=== PATIENT | female | born 1985 | race Caucasian/White ===

== ENCOUNTER 2017-07-28 13:45 | Emergency (ER) | payer BC ==
--- NOTE | 2017-07-28 14:24 | EDM.PDOC ---
ED HPI GENERAL MEDICAL PROBLEM - General Chief Complaint: Respiratory Problem Stated Complaint: RT SIDE HURTS Time Seen by Provider: 07/28/17 14:15 Source of Information: Reports: Patient History Limitations: Reports: No Limitations - History of Present Illness INITIAL COMMENTS - FREE TEXT/NARRATIVE: HISTORY AND PHYSICAL: History of present illness: [Comes to the ER with complaints of cough, wheezing and pain to her right chest area. She's had a cough for the past 3 weeks and it has been gradually worsening. She describes it is croupy and wet. Wheezing developed over the past couple of days. She experiences pain in her right chest when she is coughing or taking a deep breath. This began last night and has continued into today prompting her ER visit. She has not taken any medications for her symptoms. She has checked her temperature but has had episodes of feeling warm alternating with chills. Appetite is normal. No abdominal pain nausea or vomiting. She feels some mild shortness of breath which is worse with coughing. No sore throat or runny nose. Cough is productive for yellow to green colored sputum. She smokes one pack of cigarettes per day. No history of bleeding or clotting disorder. No history of DVT. No recent travel. 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 Review of systems: As per history of present illness and below otherwise all systems reviewed and negative. Past medical history: As per history of present illness and as reviewed below otherwise noncontributory. Surgical history: As per history of present illness and as reviewed below otherwise noncontributory. Social history: No reported history of drug or alcohol abuse. Family history: As per history of present illness and as reviewed below otherwise noncontributory. Physical exam: HEENT: Atraumatic, normocephalic. oral mucous membranes are pink and mildly dry. Neck supple, no lymphadenopathy. Lungs:Crackles and wheezing appreciated throughout all lung godinez anteriorly and posteriorly. Is not in any acute distress. No increased pain to chest wall with palpation of her chest. Heart: S1S2, regular rate and rhythm. Abdomen: Soft, nondistended, nontender. Pelvis: Stable nontender. Genitourinary: Deferred. Rectal: Deferred. Extremities: Atraumatic, negative for cords or calf pain. cyanosis or edema. Neurovascular unremarkable. Neuro: Awake, alert, oriented. Motor and sensory unremarkable throughout. Exam nonfocal. Diagnostics: [CBC, CMP, D-dimer, chest x-ray] Therapeutics: [DuoNeb, Solu-Medrol 125mg IM] Impression: [URI] Plan: [Claims that pain to R chest is worsening while in the ER. O2 sats remain stable at 96%. D-dimer is check and found to be WNL. Chest x-ray is clear Solu- Medrol given in the ER. Follow-up with primary care. Strict return precautions are reviewed. She verbalized understanding of discussion. CBC and CMP are largely WNL. Rx's written for azithromycin 250mg (#6) si po today, then 1 po daily 0 RF"s, Prednisone 20mg (#10) si po qd 0 RF's. ] Definitive disposition and diagnosis as appropriate pending reevaluation and review of above. Right Chest Pain Score (Numeric/FACES): 8 - Related Data Allergies Allergy/AdvReac Type Severity Reaction Status Date / Time bupropion [From Zyban] Allergy Severe Rash Verified 07/28/17 14:02 amoxicillin Allergy Rash Verified 07/28/17 14:02 diphenhydramine Allergy Rash Verified 07/28/17 14:02 [From Benadryl] Sulfa (Sulfonamide Allergy Rash Verified 07/28/17 14:02 Antibiotics) Home Meds: Home Meds FLUoxetine HCl [Fluoxetine HCl] 50 mg PO DAILY 07/28/17 [History] Hydroxychloroquine Sulfate [Plaquenil] 200 mg PO BID 07/28/17 [History] LORazepam 1 mg PO DAILY PRN 07/28/17 [History] Mycophenolate Mofetil [Cellcept] 1,500 mg PO DAILY 07/28/17 [History] Ondansetron [Zofran ODT] 1 tab PO Q6HR PRN 07/28/17 [History] Topiramate [Topamax] 50 mg PO BID 07/28/17 [History] Past Medical History 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: Musculoskeletal History: Reports: Fibromyalgia, SLE Psychiatric History: Reports: Anxiety Immunologic History: Reports: SLE - Past Surgical History HEENT Surgical History: Reports: Tonsillectomy, Other (See Below) Other HEENT Surgeries/Procedures: Ear surgery GI Surgical History: Reports: Cholecystectomy Female Surgical History: Reports: Hysterectomy Other Musculoskeletal Surgeries/Procedures:: Lupus Social & Family History - Family History Family Medical History: Noncontributory - Tobacco Use Smoking Status *Q: Current Every Day Smoker Years of Tobacco use: 10 Packs/Tins Daily: 0.5 - Caffeine Use Caffeine Use: Reports: None - Recreational Drug Use Recreational Drug Use: No ED ROS GENERAL - Review of Systems Review Of Systems: ROS reveals no pertinent complaints other than HPI. ED EXAM, GENERAL - Physical Exam Exam: See Below Course - Vital Signs Last Recorded V/S: Last Vital Signs Temp 97.0 F 07/28/17 16:43 Pulse 94 07/28/17 16:43 Resp 18 07/28/17 16:43 BP 136/86 07/28/17 16:43 Pulse Ox 95 07/28/17 16:43 - Orders/Labs/Meds Orders: Active Orders 24 hr Category Date Time Status RT Aerosol Therapy [RC] ASDIRECTED Care 07/28/17 15:25 Active Chest 2V [CR] Stat Exams 07/28/17 14:13 Taken Labs: Laboratory Tests 07/28/17 07/28/17 07/28/17 Range/Units 14:25 14:25 14:25 WBC 9.75 (4.0-11.0) K/uL RBC 5.36 (4.30-5.90) M/uL Hgb 15.8 (12.0-16.0) g/dL Hct 45.1 (36.0-46.0) % MCV 84.1 (80.0-98.0) fL MCH 29.5 (27.0-32.0) pg MCHC 35.0 (31.0-37.0) g/dL RDW Std Deviation 42.3 (28.0-62.0) fl RDW Coeff of Harika 14 (11.0-15.0) % Plt Count 320 (150-400) K/uL MPV 10.50 (7.40-12.00) fL Neut % (Auto) 59.2 (48.0-80.0) % Lymph % (Auto) 33.4 (16.0-40.0) % [place] % (Auto) 4.0 (0.0-15.0) % Eos % (Auto) 2.4 (0.0-7.0) % Baso % (Auto) 1.0 (0.0-1.5) % Neut # (Auto) 5.8 H (1.4-5.7) K/uL Lymph # (Auto) 3.3 H (0.6-2.4) K/uL [place] # (Auto) 0.4 (0.0-0.8) K/uL Eos # (Auto) 0.2 (0.0-0.7) K/uL Baso # (Auto) 0.1 (0.0-0.1) K/uL Nucleated RBC % 0.0 /100WBC Nucleated RBCs # 0 K/uL D-Dimer, Quantitative < 0.19 (0.0-0.52) mg/LFEU Sodium 138 (136-145) mmol/L Potassium 4.2 (3.5-5.1) mmol/L Chloride 102 (98-107) mmol/L Carbon Dioxide 26.5 (21.0-32.0) mmol/L BUN 24 H (7.0-18.0) mg/dL Creatinine 1.0 (0.6-1.0) mg/dL Est Cr Clr Drug Dosing 66.19 mL/min Estimated GFR (MDRD) > 60.0 ml/min Glucose 176 H (74-106) mg/dL Calcium 8.8 (8.5-10.1) mg/dL Total Bilirubin 0.3 (0.2-1.0) mg/dL AST 21 (15-37) IU/L ALT 35 (14-63) IU/L Alkaline Phosphatase 86 (46-116) U/L Total Protein 7.5 (6.4-8.2) g/dL Albumin 4.0 (3.4-5.0) g/dL Globulin 3.5 (2.0-3.5) g/dL Albumin/Globulin Ratio 1.1 L (1.3-2.8) Meds: Medications Discontinued Medications Generic Name Dose Route Start Last Admin Trade Name Freq PRN Reason Stop Dose Admin Albuterol/Ipratropium 3 ml 07/28/17 15:25 07/28/17 15:31 Duoneb 3.0-0.5 Mg/3 Ml NEB 07/28/17 15:26 3 ml ONETIME ONE Administration Methylprednisolone Sodium Succinate 125 mg 07/28/17 16:11 07/28/17 16:27 Solu-Medrol IM 07/28/17 16:12 125 mg ONETIME ONE Administration Departure - Departure Time of Disposition: 16:05 Disposition: Home, Self-Care 01 Condition: Good Clinical Impression: URI (upper respiratory infection) - Discharge Information Instructions: Upper Respiratory Infection, Adult, [id number] Referrals: PCP,None [Primary Care Provider] - Forms: ED Department Discharge Additional Instructions: The following information is given to patients seen in the emergency department who are being discharged to home. This information is to outline your options for follow-up care. We provide all patients seen in our emergency department with a follow-up referral. The need for follow-up, as well as the timing and circumstances, are variable depending upon the specifics of your emergency department visit. If you don't have a primary care physician on staff, we will provide you with a referral. We always advise you to contact your personal physician following an emergency department visit to inform them of the circumstance of the visit and for follow-up with them and/or the need for any referrals to a consulting specialist. The emergency department will also refer you to a specialist when appropriate. This referral assures that you have the opportunity for follow-up care with a specialist. All of these measure are taken in an effort to provide you with optimal care, which includes your follow-up. Under all circumstances we always encourage you to contact your private physician who remains a resource for coordinating your care. When calling for follow-up care, please make the office aware that this follow-up is from your recent emergency room visit. If for any reason you are refused follow-up, please contact the [facility] emergency department at and asked to speak to the emergency department charge nurse. [facility] [address] [place] [id number] Follow-up with her local primary care provider or at the clinic listed above in 48-72 hours. Take antibiotics as prescribed. Robitussin or Delsym cough syrup as needed for cough. Return to ER as needed as discussed. - My Orders Last 24 Hours: My Active Orders 07/28/17 14:13 Chest 2V [CR] Stat 07/28/17 15:25 RT Aerosol Therapy [RC] ASDIRECTED - Assessment/Plan Last 24 Hours: My Active Orders 07/28/17 14:13 Chest 2V [CR] Stat 07/28/17 15:25 RT Aerosol Therapy [RC] ASDIRECTED
[2017-07-28 14:49] LABS: CHLORIDE,CL 102 mmol/L (98-107); SODIUM,NA 138 mmol/L (136-145)
[2017-07-28] MEDS ORDERED: Albuterol/Ipratropium 3.0-0.5 MG/3 ML Neb Soln NEB ONE (15:25)
[2017-07-28] MEDS ORDERED: methylPREDNISolone Sodium Succinate 125 MG/2 ML SDV IM ONE (16:11)
--- NOTE | 2017-07-29 15:36 | CR ---
EXAM DATE: 07/28/17 PATIENT'S AGE: 32 Patient: SANDEEP DEL REAL Facility: [place], [place] Site . Site : 1985 Study: XRay Chest [id number]/2018 3:11:23 PM Ordering Physician: Doctor Reynoso Final Report: INDICATION: cough for 3 weeks/ wheezing 2 View Chest. Findings: The lungs are clear. Pulmonary vascularity, mediastinum and cardiac silhouette are within normal limits. No effusions and no pneumothorax. Osseous structures appear unremarkable. Impression: No evidence of acute cardiopulmonary disease. Dictated by: Erik Boo MD @ 07/28/2017 15:13:05 (Electronic Signature) Report Signed by Proxy. CLARA
== END 2017-07-28 16:44 | disposition home or self-care (01) ==
LOC: MW.ED 13:45
DX: J06.9 Acute upper respiratory infection, unspecified (principal); F41.9 Anxiety disorder, unspecified; F17.210 Nicotine dependence, cigarettes, uncomplicated; Z88.1 Allergy status to other antibiotic agents; Z88.8 Allergy status to other drugs, medicaments and biological substances; Z88.2 Allergy status to sulfonamides; Z79.899 Other long term (current) drug therapy
CPT/HCPCS: 36415; 71046; 80053; 85025; 85379; 94640; 99285; J2930; 99283